=== PATIENT | female | born 1970 | race African-American/Black ===

== ENCOUNTER 2019-04-12 03:54 | Emergency (ER) | payer BC, OTHER ==
[~2019-04-12] VITALS: Ht 170.2 cm; Wt 57.4 kg
[~2019-04-12 03:54] MED LIST: NAPROSYN500 MG PO; NORCO 5-325 TA1 EACH PO; NORFLEX100 MG PO; SYNTHROID150 MCG PO
[2019-04-12] MEDS ORDERED: LISINOPRIL10 MG PO (04:12)
[2019-04-12 04:46] LABS: ABSOLUTE NEUTROPHILS 3.8 thou/uL (1.4-8.2); BASOPHILS 1.3 % (0.0-2.0); EOSINOPHILS 0.9 % (0.0-3.0); HEMATOCRIT 41.5 % (37.0-47.0); HEMOGLOBIN 13.9 gm/dL (12.0-15.0); LYMPHOCYTES 33.5 % (24.0-44.0); MCH 28.9 pg (26.0-34.0); MCHC 33.6 g/dL (28.0-37.0); MCV 86.1 fL (80.0-100.0); MONOCYTES 6.3 % (1.0-8.0); PLATELET COUNT 237 thou/uL (150-400); RBC 4.81 mil/uL (4.20-5.00); WBC 6.5 thou/uL (4.0-11.0)
[2019-04-12 04:59] LABS: URINE BILIRUBIN NEGATIVE (Negative); URINE BLOOD TRACE (Negative); URINE CLARITY CLEAR; URINE COLOR YELLOW; URINE GLUCOSE-RANDOM* NEGATIVE (Negative); URINE KETONES NEGATIVE (Negative); URINE LEUKOCYTES-REFLEX NEGATIVE (Negative); URINE NITRITE-REFLEX NEGATIVE (Negative); URINE PROTEIN (DIPSTICK) 1+ (Negative); URINE SPECIFIC GRAVITY 1.015 (1.005-1.035); URINE UROBILINOGEN 0.2 E.U./dl (0.2-1.0)
[2019-04-12 05:05] LABS: ALBUMIN 4.3 g/dL (3.4-5.0); ANION GAP 7 mmol/L (7-16); APTT 29.6 Seconds (24.5-32.8); BUN 19 mg/dL (7-18); CALCIUM 8.8 mg/dL (8.5-10.1); CHLORIDE 103 mmol/L (98-107); CO2 31 mmol/L (21-32); CREATININE 0.9 mg/dL (0.6-1.0); GLUCOSE 87 mg/dL (74-106); PROTIME 10.5 Seconds (9.3-11.4); SGOT 26 U/L (15-37); SGPT 27 U/L (30-65); SODIUM 141 mmol/L (136-145); TOTAL BILIRUBIN 0.7 mg/dL (<0.1-1.0); TOTAL PROTEIN 8.7 g/dL (6.4-8.2); TROPONIN-I <0.06 ng/mL (<0.06)
[2019-04-12 05:08] LABS: POTASSIUM 2.9 mmol/L (3.5-5.1)
[2019-04-12 05:10] LABS: BACTERIA-REFLEX None Seen /HPF (None Seen); CASTS None Seen /LPF (None Seen); CRYSTALS None Seen /LPF (None Seen); MUCUS None Seen strn/LPF (None Seen); SQUAMOUS 0-3 Few /LPF (0-3); URINE RBC 0-2 Rare /HPF (0-2); URINE WBC-REFLEX None Seen /HPF (0-5)
[2019-04-12 05:45] VITALS: BP 156/106
--- NOTE | 2019-04-12 09:58 | EKG ---
[place] [address] [facility] [place] [address] ELECTROCARDIOGRAM REPORT Name: MARCELLE ASTORGA Room #: DEP [facility]#: [id number] ������������������ Admission: 04/12/19 ������������������ Attend Phys: Discharge: 04/12/19 ������������������ Date of : 74 Report #: [id number] ����������������������������������������������������������������� [id number] THIS REPORT FOR: //name// [facility] ED Test Date: 2019-04-12 Test Time: 04:15:21 Pat Name: MARCELLE ASTORGA Department: Room: Gender: F [employer]onemason Helper: [id number] : 1970 Requested By: Leonidas Escobar Order Number: [id number] MD: Pascual Eid Measurements Intervals [place] Rate: 76 P: 74 W[place]: 164 QRS: -5 QRSD: 101 T: 18 QT: 504 QTc: 567 Interpretive Statements Sinus rhythm Borderline T wave abnormalities Prolonged QT interval Baseline wander in lead(s) V1 No previous ECG available for comparison Electronically Signed On 04-12-2019 9:58:06 CDT by Pascual Eid [email or web address] ��������������������������������������������� <ELECTRONICALLY SIGNED> ���������������������������������������� By: Pascual Eid MD, [facility] ��������������������������������������������� 04/12/19 0958 0415 0415 Pascual Eid MD, FACC /EPI
== END 2019-04-12 05:45 | disposition home or self-care (01) ==
LOC: ER 03:54
PROVIDERS: Emergency Medicine
DX: I10 Essential (primary) hypertension (principal)